=== PATIENT | male | born 1990 | race African-American/Black ===

== ENCOUNTER 2024-10-29 21:58 | Emergency (ER) | payer MEDICAID ==
[~2024-10-29] VITALS: Ht 185.4 cm; Wt 80.7 kg
[2024-10-30] MEDS ORDERED: NAPR-1192 PO (00:31)
[2024-10-30] MEDS ORDERED: AMOX500C2 PO (00:31)
[2024-10-30 00:37] VITALS: BP 121/66; TEMP 97.8; O2SAT 98
== END 2024-10-30 00:37 | disposition home or self-care (01) ==
LOC: ER 22:18
DX: R51.9 Headache, unspecified (principal); R68.84 Jaw pain; R50.9 Fever, unspecified; F17.200 Nicotine dependence, unspecified, uncomplicated; Z59.00 Homelessness unspecified
CPT/HCPCS: A4606; A4663

== ENCOUNTER 2025-01-31 05:34 | Emergency (ER) | payer MEDICAID ==
[~2025-01-31] VITALS: Ht 185.4 cm; Wt 79.4 kg
[~2025-01-31 05:34] MED LIST: AMOX500C2 PO; NAPR-1192 PO
[2025-01-31] MEDS ORDERED: HYDR-4209 PO (06:10)
[2025-01-31] MEDS ORDERED: PENICILLIN G BENZATHINE 2.4 MMU/4 ML DISP.SYRIN IM ONE (06:31)
[2025-01-31] MEDS: PENICILLIN G BENZATHINE 2.4 MMU/4 ML DISP.SYRIN IM ONE (06:31)
[2025-01-31 07:11] VITALS: BP 110/70; TEMP 97.8; O2SAT 100
== END 2025-01-31 07:13 | disposition home or self-care (01) ==
LOC: ER 05:36
DX: K08.89 Other specified disorders of teeth and supporting structures (principal)
CPT/HCPCS: 99283; 96372; J0561; A4606; A4663

== ENCOUNTER 2025-05-08 08:44 | Emergency (ER) | payer MEDICAID ==
[~2025-05-08] VITALS: Ht 185.4 cm; Wt 83.9 kg
[~2025-05-08 08:44] MED LIST changes: +HYDR-4209 PO
[2025-05-08 08:52] VITALS: BP 116/65
[2025-05-08 09:20] LABS: PLATELET COUNT (AUTO) 198 K/uL (152-348); RED BLOOD CELL COUNT(AUTO) 4.88 MIL/uL (4.06-5.63); RED CELL DISTRIBUTION WIDTH 14.1 % (12.1-16.2); WHITE BLOOD COUNT (AUTO) 4.7 K/uL (3.6-10.2)
[2025-05-08 09:28] LABS: CREATININE 0.8 mg/dL (0.6-1.3); SODIUM SERUM 144 mmol/L (136-145); UREA NITROGEN, BLOOD 17 mg/dL (7-18)
[2025-05-08] MEDS: IV NORMAL SALINE 1000 ML BAG IV ONE ×2 (09:32→10:46)
[2025-05-08 09:33] LABS: ETHANOL 14.0 MG/DL (0-10)
[2025-05-08 09:34] LABS: ASPARTATE AMINOTRANSFERASE 24 U/L (15-37); TOTAL PROTEIN, SERUM 8.3 g/dL (6.4-8.2)
[2025-05-08] MEDS ORDERED: DIAZEPAM 10 MG/2 ML DISP.SYRIN ONE (09:37)
[2025-05-08] MEDS: DIAZEPAM 10 MG/2 ML DISP.SYRIN IV ONE (09:43)
[2025-05-08] MEDS ORDERED: METO-295 PO (11:08)
[2025-05-08] MEDS ORDERED: FAMO-132 PO (11:08)
[2025-05-08 13:23] VITALS: BP 126/73; TEMP 97.6; O2SAT 97
== END 2025-05-08 13:26 | disposition home or self-care (01) ==
LOC: ER 08:44
DX: F10.129 Alcohol abuse with intoxication, unspecified (principal); F17.200 Nicotine dependence, unspecified, uncomplicated; Y90.0 Blood alcohol level of less than 20 mg/100 ml
CPT/HCPCS: 80076; 80048; 85025; 85730; 36415; 99283; 96361; 96374; 80320; J3360; J7040; G0480